=== PATIENT | male | born 2000 | race African-American/Black ===

== ENCOUNTER 2019-02-14 07:24 | Emergency (ER) | payer MEDICAID ==
[~2019-02-14] VITALS: Ht 167.6 cm; Wt 55.0 kg
[2019-02-14 07:47] VITALS: BP 124/84
[2019-02-14] MEDS ORDERED: BACITRACIN ZINC OINT UDPKT TOP ONE (08:15)
== END 2019-02-14 08:40 | disposition home or self-care (01) ==
LOC: ER 07:44
DX: S50.862A Insect bite (nonvenomous) of left forearm, initial encounter (principal); L03.114 Cellulitis of left upper limb; W57.XXXA Bitten or stung by nonvenomous insect and other nonvenomous arthropods, initial encounter; Y93.89 Activity, other specified; Y92.89 Other specified places as the place of occurrence of the external cause; Y99.8 Other external cause status
CPT/HCPCS: 99283